=== PATIENT | female | born 1990 | race Caucasian/White ===

== ENCOUNTER 2019-03-06 21:08 | Emergency (ER) | payer OTHER ==
[2019-03-06] MEDS ORDERED: Adacel Vial IM ONE ×2 (21:59→22:32)
[2019-03-06] MEDS ORDERED: BACIGUENT PACKET TP ONE (22:00)
[2019-03-06 22:18] VITALS: BP 114/54; PULSE 103; O2SAT 99
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
[2019-03-07 00:22] LABS: Appearance CLEAR (CLEAR); Bilirubin NEGATIVE (NEGATIVE); Blood SMALL Ery/ul (0-5); Glucose NEGATIVE (NEGATIVE); Ketones NEGATIVE (NEGATIVE); Leukocyte Esterase NEGATIVE (NEGATIVE); Mucus SLIGHT /HPF (NEGATIVE); Nitrite NEGATIVE (NEGATIVE); Protein,Urine Dip NEGATIVE (Negative); Specific Gravity 1.003 (1.005-1.025); Urobilinogen NEGATIVE mg/dL (0-1); WBC 0-2 /HPF (0-5)
[2019-03-07 00:34] LABS: Amphetamine,Urine POSITIVE (NEGATIVE); Barbiturate,Urine NEGATIVE (NEGATIVE); Benzodiazepine,Urine NEGATIVE (NEGATIVE); Cocaine,Urine NEGATIVE (NEGATIVE); Methadone,Urine NEGATIVE (NEGATIVE); PCP,Urine NEGATIVE (NEGATIVE); THC,Urine POSITIVE (NEGATIVE)
[2019-03-07 00:42] LABS: Opiate,Urine NEGATIVE (NEGATIVE)
[2019-03-07 01:14] LABS: Bacteria NONE SEEN /HPF (NEGATIVE); RBC NONE SEEN /HPF (0-2)
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
== END 2019-03-07 01:24 | disposition home or self-care (01) ==
LOC: ED 21:08
DX: S50.811A Abrasion of right forearm, initial encounter (principal); S50.812A Abrasion of left forearm, initial encounter; V89.0XXA Person injured in unspecified motor-vehicle accident, nontraffic, initial encounter
CPT/HCPCS: 73552; 80307; 81001; 84703; 90471; 90715; 99284; A9270-GY

== ENCOUNTER 2020-10-03 21:49 | Emergency (ER) | payer OTHER ==
[2020-10-03] MEDS ORDERED: Zofran 4 MG/2 ML VIAL IV ONE (22:23)
[2020-10-03] MEDS ORDERED: MORPHINE SULFATE 4 MG INJ IV ONE (22:23)
[2020-10-03] MEDS ORDERED: Sodium Chloride 0.9% 1000 ML 1,000 ML IV STA (22:23)
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
[2020-10-03] MEDS ORDERED: Sodium Chloride 0.9% 1000 ML 1,000 ML ONE (22:42)
[2020-10-03] MEDS ORDERED: Zofran 4 MG/2 ML VIAL ONE (22:42)
[2020-10-03] MEDS ORDERED: MORPHINE SULFATE 4 MG INJ ONE (22:42)
[2020-10-03 22:55] LABS: Absolute Neutrophil Ct (ANC) 6.35 (1.4-6.9); BASOPHIL % 0.4 % (0.0-0.4); Basophil (Absolute #) 0.04 (0-0.4); Eosinophil % 1.9 % (0.00-5.0); Hematocrit 40.4 % (35-47); Hemoglobin 13.3 gm/dl (12.0-16.0); Lymphocyte (Absolute #) 3.13 (1.0-4.6); Lymphocytes % 29.8 % (24.0-44.0); Mean Cell Volume 92.9 fl (78-100); Mean Corpuscular Hemoglobin 30.6 pg (26-32); Mean Corpuscular Hgb Concent. 32.9 g/dl (32-36); Mean Platelet Volume 9.4 fl (7.5-11.0); Monocyte (Absolute #) 0.79 (0.0-1.3); Monocytes % 7.5 % (0.0-12.0); Neutrophil % 60.4 % (36.0-66.0); Platelet Count 361 K/mm3 (150-450); Red Blood Count 4.35 M/mm3 (4.1-5.4); Red Cell Distribution Width 14.8 % (11.5-14.0); White Blood Count 10.5 K/mm3 (4.0-10.5)
[2020-10-03 23:02] LABS: Appearance SLIGHTLY CLOUDY (CLEAR); Bilirubin NEGATIVE (NEGATIVE); Blood NEGATIVE Ery/ul (0-5); Epithelial Cells FEW /HPF (FEW); Glucose NEGATIVE (NEGATIVE); Ketones NEGATIVE (NEGATIVE); Leukocyte Esterase LARGE (NEGATIVE); Mucus SLIGHT /HPF (NEGATIVE); Nitrite NEGATIVE (NEGATIVE); Protein,Urine Dip NEGATIVE (Negative); RBC 0-2 /HPF (0-2); Specific Gravity 1.012 (1.005-1.025); Urobilinogen NEGATIVE mg/dL (0-1)
[2020-10-03 23:06] LABS: ALBUMIN 4.8 g/dL (3.5-5.0); ALKALINE PHOSPHATASE 44 U/L (38-126); AMYLASE 74 U/L (30-110); ANION GAP 10.3 MEQ/L (5-15); BLOOD UREA NITROGEN 5 mg/dL (7-17); CHLORIDE 104 mmol/L (98-107); Calcium 9.5 mg/dL (8.4-10.2); Carbon Dioxide 28 mmol/L (22-30); Creatinine 1 0.62 mg/dL (0.52-1.04); EST GLOMERULAR FILTRATION RATE > 60.0 ML/MIN; Glucose 91 mg/dL (74-106); LIPASE 110 U/L (23-300); Potassium 3.5 mmol/L (3.5-5.1); SGOT/AST 21 U/L (14-36); SGPT/ALT 7 U/L (0-35); SODIUM 139 mmol/L (137-145); Total Protein 7.6 g/dL (6.3-8.2)
[2020-10-03 23:48] VITALS: O2SAT 98
[2020-10-04 00:18] VITALS: BP 120/80; PULSE 90
--- NOTE | 2020-10-04 08:54 | XRAY ---
Indication: Vomiting and diarrhea. Comparison: None 2 view abdomen nonacute and nonobstructed with IUD in situ. Solid organs and osseous structures unremarkable. Single PA chest demonstrates normal heart, lungs, and bony thorax. Comment: Preliminary interpretation was made by [facility]. No critical discrepancy.
== END 2020-10-04 | disposition home or self-care (01) ==
LOC: ED 21:49
DX: R10.10 Upper abdominal pain, unspecified (principal)
CPT/HCPCS: 36000; 36415; 74022; 80053; 81001; 81025; 82150; 83690; 85025; 86617; 86618; 87086; 96360; 96374; 96375; 99284; J2270; J2405

== ENCOUNTER 2022-08-07 00:03 | Emergency (ER) | payer OTHER ==
[2022-08-07 00:20] VITALS: O2SAT 96
[2022-08-07] MEDS ORDERED: Sodium Chloride 0.9% 1000 ML 1,000 ML IV SCH (00:30)
[2022-08-07] MEDS ORDERED: Sodium Chloride 0.9% 1000 ML 1,000 ML ONE (00:32)
[2022-08-07 00:40] LABS: Absolute Neutrophil Ct (ANC) 4.57 x10^3/uL (1.4-6.9); BASOPHIL % 0.6 % (0.0-0.4); Basophil (Absolute #) 0.04 x10^3/uL (0-0.4); Eosinophil % 2.7 % (0.00-5.0); Eosinophil (Absolute #) 0.17 x10^3/uL (0-0.5); Hematocrit 36.5 % (35-47); IMMATURE GRAN # 0.02 x10^3u/L (0.00-0.03); IMMATURE GRAN % 0.3 % (0.00-0.4); Lymphocyte (Absolute #) 1.23 x10^3/uL (1.0-4.6); Lymphocytes % 19.4 % (24.0-44.0); Mean Cell Volume 91.9 fL (78-100); Mean Corpuscular Hemoglobin 30.2 pg (26-32); Mean Corpuscular Hgb Concent. 32.9 g/dL (32-36); Mean Platelet Volume 10.3 fL (7.5-11.0); Monocyte (Absolute #) 0.31 x10^3/uL (0.0-1.3); Monocytes % 4.9 % (0.0-12.0); Neutrophil % 72.1 % (36.0-66.0); Platelet Count 224 x10^3/uL (150-450); Red Blood Count 3.97 x10^6/uL (4.1-5.4); Red Cell Distribution Width 12.9 % (11.5-14.0); White Blood Count 6.3 x10^3/uL (4.0-10.5)
[2022-08-07 00:53] LABS: ACETAMINOPHEN < 10 ug/ml (10-30); ETHYL ALCOHOL < 10 mg/dL (0-10); SALICYLATE < 1.0 mg/dL (2-20)
--- NOTE | 2022-08-07 00:53 | ERPHSYRPT ---
- History of Present Illness Time Seen by Provider: 08/07/22 00:10 Source: patient, family, EMS Exam Limitations: no limitations Patient Subjective Stated Complaint: pt states " she can't function right" since she took her medicine Lamotragine and, klonopin Triage Nursing Assessment: pt awake. a&o. color wnl. vs wnl. pt's lower ext noticed to have mild tremor at times Physician History: Patient is a 31-year-old female presents to the emergency department via EMS for evaluation of possible seizure. Patient states she has a history of bipolar and seizure disorder. Patient's last seizure was 4 years ago. Patient was at home today. Patient took lamotrigine and Klonopin on an empty stomach. Patient states she began to develop tremors. It is unclear whether patient had a actual seizure. No tongue biting. No incontinence. Upon arrival to our ED patient was alert and oriented x4. No trauma. No fever. No neck pain. No photophobia. No meningeal signs. No associated chest pain or shortness of breath. Patient voices no other complaints or concerns at this time. Portions of this note were created with voice recognition technology. There may be grammatical, spelling, punctuation or sound alike errors Timing/Duration: today Severity: moderate Modifying Factors: Improves With: nothing Associated Symptoms: denies symptoms Allergies/Adverse Reactions: No Known Drug Allergies Allergy (Verified 08/07/22 00:07) Home Medications: ziprasidone HCL [Ziprasidone HCl] 1 cap PO BID 10/03/20 [History] Hx Tetanus, Diphtheria Vaccination/Date Given: No Hx Influenza Vaccination/Date Given: No Hx Pneumococcal Vaccination/Date Given: No Immunizations Up to Date: No Travel Risk - International Travel Have you traveled outside of the country in past 3 weeks: No - Coronavirus Screening Are you exhibiting any of the following symptoms?: No - Vaccine Status Have you recieved a Covid-19 vaccination: Yes Cue Worker: Unknown - Vaccination Dates Dates if Unknown: 2020 - Review of Systems Constitutional: No Symptoms, No Fever, No Chills Eyes: No Symptoms Ears, Nose, & Throat: No Symptoms Respiratory: No Symptoms, No Cough, No Dyspnea Cardiac: No Symptoms, No Chest Pain, No Edema, No Syncope Abdominal/Gastrointestinal: No Symptoms, No Abdominal Pain, No Nausea, No Vomiting, No Diarrhea Genitourinary Symptoms: No Symptoms, No Dysuria Musculoskeletal: No Symptoms, No Back Pain, No Neck Pain Skin: No Symptoms, No Rash Neurological: No Symptoms, No Dizziness, No Focal Weakness, No Sensory Changes Psychological: No Symptoms Endocrine: No Symptoms Hematologic/Lymphatic: No Symptoms Immunological/Allergic: No Symptoms All Other Systems: Reviewed and Negative - Past Medical History Pertinent Past Medical History: Yes Neurological History: Seizures ENT History: No Pertinent History Cardiac History: No Pertinent History Respiratory History: No Pertinent History Endocrine Medical History: No Pertinent History Musculoskeletal History: No Pertinent History GI Medical History: No Pertinent History History: No Pertinent History Psycho-Social History: Anxiety, Bipolar Female Reproductive Disorders: No Pertinent History Other Medical History: tailbone fx 10-12 years ago - Past Surgical History Past Surgical History: No Neuro Surgical History: No Pertinent History Cardiac: No Pertinent History Respiratory: No Pertinent History Gastrointestinal: No Pertinent History Genitourinary: No Pertinent History Musculoskeletal: No Pertinent History Female Surgical History: No Pertinent History - Social History Smoking Status: Never smoker How long have you smoked: years Exposure to second hand smoke: No Drug Use: none Patient Lives Alone: No - Female History Hx Last Menstrual Period: IUD Hx Now: No - Nursing Vital Signs Nursing Vital Signs: Initial Vital Signs Temperature 99.2 F 08/07/22 00:05 Pulse Rate 92 H 08/07/22 00:05 Respiratory Rate 18 08/07/22 00:05 Blood Pressure 130/74 08/07/22 00:05 O2 Sat by Pulse Oximetry 96 08/07/22 00:05 Pain Scale Pain Intensity 0 - Physical Exam General Appearance: no apparent distress, alert Eye Exam: PERRL/EOMI, eyes nml inspection Ears, Nose, Throat Exam: normal ENT inspection, TMs normal, pharynx normal, moist mucous membranes Neck Exam: normal inspection, non-tender, supple, full range of motion Respiratory Exam: normal breath sounds, lungs clear, No respiratory distress Cardiovascular Exam: regular rate/rhythm, normal heart sounds, normal peripheral pulses Gastrointestinal/Abdomen Exam: soft, normal bowel sounds, No tenderness, No mass Back Exam: normal inspection, normal range of motion, No CVA tenderness, No vertebral tenderness Extremity Exam: normal inspection, normal range of motion, pelvis stable Neurologic Exam: alert, oriented x 3, cooperative, normal mood/affect, nml cerebellar function, nml station & gait, sensation nml, No motor deficits Skin Exam: normal color, warm, dry, No rash Lymphatic Exam: No adenopathy SpO2 Interpretation: normal SpO2: 96 O2 Delivery: Room Air - Course Nursing assessment & vital signs reviewed: Yes EKG Interpreted by Me: RATE ([id number]), Sinus Rhythm, NORMAL AXIS, NORMAL INTERVALS - CT Exams Head CT Interpretation: Tele-radiologist Report (No acute intracranial abnormality) Ordered Tests: Active Orders 24 hr Category Date Time Status Human Resources Communications Manager STAT Care 08/07/22 00:25 Active EKG-ER Only STAT Care 08/07/22 00:25 Active IV Insertion STAT Care 08/07/22 00:25 Active Pulse Oximetry (ED) STAT Care 08/07/22 00:25 Active HEAD WITHOUT CONTRAST [CT] Stat Exams 08/07/22 00:29 Taken ACETAMINOPHEN Stat Lab 08/07/22 00:37 Completed CBC W DIFF Stat Lab 08/07/22 00:37 Completed CMP Stat Lab 08/07/22 00:37 Completed CULTURE,URINE Stat Lab 08/07/22 01:21 Received ETHYL ALCOHOL Stat Lab 08/07/22 00:37 Completed HCG,QUALITATIVE URINE Stat Lab 08/07/22 01:21 Completed MAGNESIUM Stat Lab 08/07/22 00:37 Completed SALICYLATE Stat Lab 08/07/22 00:37 Completed TROPONIN Q4H Lab 08/07/22 00:37 Completed TROPONIN Q4H Lab 08/07/22 02:31 Completed TROPONIN Q4H Lab 08/07/22 08:30 Ordered UA W/RFX UR CULTURE Stat Lab 08/07/22 01:21 Completed Urine Triage Profile Stat Lab 08/07/22 01:21 Completed Medication Summary Generic Name Dose Route Start Last Admin Trade Name Cristianq PRN Reason Stop Dose Admin Sodium Chloride 1,000 mls @ 100 mls/hr 08/07/22 00:30 08/07/22 00:34 Sodium Chloride 0.9% 1000 Ml IV 09/06/22 00:29 100 mls/hr .Q10H TAVIA Administration Ceftriaxone Sodium/Dextrose 1 g in 50 mls @ 100 mls/hr 08/07/22 02:50 08/07/22 02:54 Rocephin 1 Gm-D5w 50 Ml Bag IV 08/07/22 03:19 100 mls/hr STAT STA 100 mls/hr Administration Discontinued Medications Generic Name Dose Route Start Last Admin Trade Name Christi PRN Reason Stop Dose Admin Ceftriaxone Sodium/Dextrose Confirm 08/07/22 02:51 Rocephin 1 Gm-D5w 50 Ml Bag Administered 08/07/22 02:52 Dose 1 g in 50 mls @ ud IV .STK-MED ONE Lab/Rad Data: Laboratory Result Diagrams 08/07/22 00:37 08/07/22 00:37 Laboratory Results 08/07/22 08/07/22 08/07/22 Range/Units 02:31 01:21 01:21 WBC (4.0-10.5) x10^3/uL RBC (4.1-5.4) x10^6/uL Hgb (12.0-16.0) g/dL Hct (35-47) % MCV (78-100) fL MCH (26-32) pg MCHC (32-36) g/dL RDW (11.5-14.0) % Plt Count (150-450) x10^3/uL MPV (7.5-11.0) fL Gran % (36.0-66.0) % Immature Gran % (Auto) (0.00-0.4) % Nucleat RBC Rel Count (0.00-0.1) % Eos # (Auto) (0-0.5) x10^3/uL Immature Gran # (Auto) (0.00-0.03) x10^3u/L Absolute Lymphs (auto) (1.0-4.6) x10^3/uL Absolute Monos (auto) (0.0-1.3) x10^3/uL Absolute Nucleated RBC (0.00-0.01) x10^3u/L Lymphocytes % (24.0-44.0) % Monocytes % (0.0-12.0) % Eosinophils % (0.00-5.0) % Basophils % (0.0-0.4) % Absolute Granulocytes (1.4-6.9) x10^3/uL Basophils # (0-0.4) x10^3/uL Sodium (137-145) mmol/L Potassium (3.5-5.1) mmol/L Chloride (98-107) mmol/L Carbon Dioxide (22-30) mmol/L Anion Gap (5-15) MEQ/L BUN (7-17) mg/dL Creatinine (0.52-1.04) mg/dL Estimated GFR ML/MIN Glucose (74-106) mg/dL Calcium (8.4-10.2) mg/dL Magnesium (1.6-2.3) mg/dL Total Bilirubin (0.2-1.3) mg/dL AST (14-36) U/L ALT (0-35) U/L Alkaline Phosphatase (38-126) U/L Troponin I < 0.012 (0.000-0.034) ng/mL Serum Total Protein (6.3-8.2) g/dL Albumin (3.5-5.0) g/dL Urine Color (Yellow) Urine Appearance (Clear) Urine pH (4.6-8.0) Ur Specific [place] (1.005-1.030) Urine Protein (Negative) Urine Glucose (UA) (Negative) mg/dL Urine Ketones (Negative) Urine Blood (Negative) Urine Nitrite (Negative) Urine Bilirubin (Negative) Urine Urobilinogen (0.2) mg/dL Ur Leukocyte Esterase (Negative) U Hyaline Cast (Auto) (0-2) /LPF Urine Microscopic RBC (0-5) /HPF Urine Microscopic WBC (0-5) /HPF Ur Epithelial Cells (None Seen) /HPF Urine Bacteria (None Seen) /HPF Urine Culture Reflexed (NO) Urine HCG, Qual NEGATIVE (Negative) Salicylates (2-20) mg/dL Urine Opiates Level NEGATIVE (NEGATIVE) Ur Methadone NEGATIVE (NEGATIVE) Acetaminophen (10-30) ug/ml Urine Barbiturates NEGATIVE (NEGATIVE) Ur Phencyclidine (PCP) NEGATIVE (NEGATIVE) Urine Amphetamine NEGATIVE (NEGATIVE) U Benzodiazepine Level NEGATIVE (NEGATIVE) Urine Cocaine NEGATIVE (NEGATIVE) Urine Marijuana (THC) POSITIVE (NEGATIVE) Ethyl Alcohol (0-10) mg/dL 08/07/22 08/07/22 08/07/22 Range/Units 01:21 00:37 00:37 WBC (4.0-10.5) x10^3/uL RBC (4.1-5.4) x10^6/uL Hgb (12.0-16.0) g/dL Hct (35-47) % MCV (78-100) fL MCH (26-32) pg MCHC (32-36) g/dL RDW (11.5-14.0) % Plt Count (150-450) x10^3/uL MPV (7.5-11.0) fL Gran % (36.0-66.0) % Immature Gran % (Auto) (0.00-0.4) % Nucleat RBC Rel Count (0.00-0.1) % Eos # (Auto) (0-0.5) x10^3/uL Immature Gran # (Auto) (0.00-0.03) x10^3u/L Absolute Lymphs (auto) (1.0-4.6) x10^3/uL Absolute Monos (auto) (0.0-1.3) x10^3/uL Absolute Nucleated RBC (0.00-0.01) x10^3u/L Lymphocytes % (24.0-44.0) % Monocytes % (0.0-12.0) % Eosinophils % (0.00-5.0) % Basophils % (0.0-0.4) % Absolute Granulocytes (1.4-6.9) x10^3/uL Basophils # (0-0.4) x10^3/uL Sodium (137-145) mmol/L Potassium (3.5-5.1) mmol/L Chloride (98-107) mmol/L Carbon Dioxide (22-30) mmol/L Anion Gap (5-15) MEQ/L BUN (7-17) mg/dL Creatinine (0.52-1.04) mg/dL Estimated GFR ML/MIN Glucose (74-106) mg/dL Calcium (8.4-10.2) mg/dL Magnesium (1.6-2.3) mg/dL Total Bilirubin (0.2-1.3) mg/dL AST (14-36) U/L ALT (0-35) U/L Alkaline Phosphatase (38-126) U/L Troponin I < 0.012 (0.000-0.034) ng/mL Serum Total Protein (6.3-8.2) g/dL Albumin (3.5-5.0) g/dL Urine Color Yellow (Yellow) Urine Appearance Cloudy A (Clear) Urine pH 7.0 (4.6-8.0) Ur Specific [place] 1.010 (1.005-1.030) Urine Protein Trace A (Negative) Urine Glucose (UA) Negative (Negative) mg/dL Urine Ketones Negative (Negative) Urine Blood Negative (Negative) Urine Nitrite Negative (Negative) Urine Bilirubin Negative (Negative) Urine Urobilinogen 0.2 (0.2) mg/dL Ur Leukocyte Esterase Large A (Negative) U Hyaline Cast (Auto) NONE SEEN (0-2) /LPF Urine Microscopic RBC 0-2 (0-5) /HPF Urine Microscopic WBC 51-100 A (0-5) /HPF Ur Epithelial Cells Moderate A (None Seen) /HPF Urine Bacteria Few A (None Seen) /HPF Urine Culture Reflexed YES (NO) Urine HCG, Qual (Negative) Salicylates < 1.0 L (2-20) mg/dL Urine Opiates Level (NEGATIVE) Ur Methadone (NEGATIVE) Acetaminophen < 10 L (10-30) ug/ml Urine Barbiturates (NEGATIVE) Ur Phencyclidine (PCP) (NEGATIVE) Urine Amphetamine (NEGATIVE) U Benzodiazepine Level (NEGATIVE) Urine Cocaine (NEGATIVE) Urine Marijuana (THC) (NEGATIVE) Ethyl Alcohol < 10 (0-10) mg/dL 08/07/22 08/07/22 Range/Units 00:37 00:37 WBC 6.3 (4.0-10.5) x10^3/uL RBC 3.97 L (4.1-5.4) x10^6/uL Hgb 12.0 (12.0-16.0) g/dL Hct 36.5 (35-47) % MCV 91.9 (78-100) fL MCH 30.2 (26-32) pg MCHC 32.9 (32-36) g/dL RDW 12.9 (11.5-14.0) % Plt Count 224 (150-450) x10^3/uL MPV 10.3 (7.5-11.0) fL Gran % 72.1 H (36.0-66.0) % Immature Gran % (Auto) 0.3 (0.00-0.4) % Nucleat RBC Rel Count 0.0 (0.00-0.1) % Eos # (Auto) 0.17 (0-0.5) x10^3/uL Immature Gran # (Auto) 0.02 (0.00-0.03) x10^3u/L Absolute Lymphs (auto) 1.23 (1.0-4.6) x10^3/uL Absolute Monos (auto) 0.31 (0.0-1.3) x10^3/uL Absolute Nucleated RBC 0.00 (0.00-0.01) x10^3u/L Lymphocytes % 19.4 L (24.0-44.0) % Monocytes % 4.9 (0.0-12.0) % Eosinophils % 2.7 (0.00-5.0) % Basophils % 0.6 (0.0-0.4) % Absolute Granulocytes 4.57 (1.4-6.9) x10^3/uL Basophils # 0.04 (0-0.4) x10^3/uL Sodium 140 (137-145) mmol/L Potassium 3.8 (3.5-5.1) mmol/L Chloride 109 H (98-107) mmol/L Carbon Dioxide 22 (22-30) mmol/L Anion Gap 12.9 (5-15) MEQ/L BUN 8 (7-17) mg/dL Creatinine 0.72 (0.52-1.04) mg/dL Estimated GFR > 60.0 ML/MIN Glucose 108 H (74-106) mg/dL Calcium 8.4 (8.4-10.2) mg/dL Magnesium 1.7 (1.6-2.3) mg/dL Total Bilirubin 0.30 (0.2-1.3) mg/dL AST 15 (14-36) U/L ALT 10 (0-35) U/L Alkaline Phosphatase 42 (38-126) U/L Troponin I (0.000-0.034) ng/mL Serum Total Protein 6.4 (6.3-8.2) g/dL Albumin 4.0 (3.5-5.0) g/dL Urine Color (Yellow) Urine Appearance (Clear) Urine pH (4.6-8.0) Ur Specific [place] (1.005-1.030) Urine Protein (Negative) Urine Glucose (UA) (Negative) mg/dL Urine Ketones (Negative) Urine Blood (Negative) Urine Nitrite (Negative) Urine Bilirubin (Negative) Urine Urobilinogen (0.2) mg/dL Ur Leukocyte Esterase (Negative) U Hyaline Cast (Auto) (0-2) /LPF Urine Microscopic RBC (0-5) /HPF Urine Microscopic WBC (0-5) /HPF Ur Epithelial Cells (None Seen) /HPF Urine Bacteria (None Seen) /HPF Urine Culture Reflexed (NO) Urine HCG, Qual (Negative) Salicylates (2-20) mg/dL Urine Opiates Level (NEGATIVE) Ur Methadone (NEGATIVE) Acetaminophen (10-30) ug/ml Urine Barbiturates (NEGATIVE) Ur Phencyclidine (PCP) (NEGATIVE) Urine Amphetamine (NEGATIVE) U Benzodiazepine Level (NEGATIVE) Urine Cocaine (NEGATIVE) Urine Marijuana (THC) (NEGATIVE) Ethyl Alcohol (0-10) mg/dL - Progress Progress: improved Progress Note: Patient is a 31-year-old female presents to our ED via EMS for evaluation of possible seizure. Patient took lamotrigine and Klonopin together on an empty stomach. Patient developed tremors. Possible seizure. No tongue biting or urinary incontinence. Patient has a history of bipolar and seizure disorder. Vital signs stable. Physical exam essentially nonremarkable. Complexity of problems addressed is new with uncertain prognosis. Complexity is moderate. No critical care time. Testing included EKG which was read by Dr. Wasserman. EKG was normal sinus rhythm. CT head negative. Tylenol level negative. CBC CMP essentially unremarkable. Alcohol negative. hCG negative. Magnesium level normal. Aspirin level negative. Troponin negative. Urinalysis shows urinary tract infection. Urine triage/toxicology screen is marijuana positive. The results were used for medical decision making. EMS provided most of the history. Patient also provided significant amount to history of present illness. Complexity of data reviewed and analyzed was moderate. Age gender, PMH/PQ , (co-morbidities that complicate presentation) , med class, PSH, (smoker) method of arrival, CC (acute, chronic or acute on chronic), State COPA level and why or if critical. vitals, Significant ROS/PE findings, working diagnoses, Tests ordered and reviewed. EMS served as independent historian. EKG was interpreted independently by Dr. Wasserman. Risk of complication and or morbidity/mortality of patient management is moderate. Patient received intravenous fluids as well as prescription grade antibiotic/IV Rocephin for urinary tract infection. Patient feels well. She has no complaints. Will discharge home. Patient agrees to follow-up with her primary care doctor within 48 hours for reevaluation. Disposition plan was decided via shared decision making. Time spent in discharge is approximately 15 minutes. Discharge diagnosis is urinary tract infection, seizure vital stable. Patient voices no other complaints or concerns at this time. Portions of this note were created with voice recognition technology. There may be grammatical, spelling, punctuation or sound alike errors 08/07/22 02:58 08/07/22 03:07 A prescription for Keflex was forwarded to patient's pharmacy to treat urinary tract infection. Counseled pt/family regarding: lab results, diagnosis, need for follow-up, rad results - Departure Departure Disposition: Home Clinical Impression: UTI (urinary tract infection), Seizure, Marijuana use Condition: Stable Critical Care Time: No Referrals: JAN REILLY MD [Primary Care Provider] - Follow up/PCP as directed Additional Instructions: Discharge/Care Plan MELANIA SIDDIQUI was seen on 08/07/22 in the Emergency Room. The patient was counseled regarding Diagnosis,Lab results, Imaging studies, need for follow up and when to return to the Emergency Room. Prescriptions given: Discharge Note I have spoken with the patient and/or caregivers. I have explained the patient's condition, diagnosis and treatment plan based on the information available to me at this time. I have answered the patient's and/or caregiver's questions and ad dressed any concerns. The patient and/or caregivers have as good understanding of the patient's diagnosis, condition and treatment plan as can be expected at this point. The vital signs have been stable. The patient's condition is stable and appropriate for discharge from the emergency department. The patient will pursue further outpatient evaluation with the primary care physician or other designated or consulting physician as outlined in the discharge instructions. The patient and/or caregivers are agreeable to this plan of care and follow-up instructions have been explained in detail. The patient and/or caregivers have received these instruction. The patient/and or caregivers are aware that any significant change in condition or worsening of symptoms should prompt an immediate return to this or the closest emergency department or call 911. Prescriptions: Cephalexin Mh 500 mg [Keflex 500 mg] 500 mg PO TID #21 cap
[2022-08-07 01:00] LABS: ALKALINE PHOSPHATASE 42 U/L (38-126); ANION GAP 12.9 MEQ/L (5-15); BLOOD UREA NITROGEN 8 mg/dL (7-17); CHLORIDE 109 mmol/L (98-107); Calcium 8.4 mg/dL (8.4-10.2); Carbon Dioxide 22 mmol/L (22-30); Creatinine 1 0.72 mg/dL (0.52-1.04); EST GLOMERULAR FILTRATION RATE > 60.0 ML/MIN; Glucose 108 mg/dL (74-106); MAGNESIUM 1.7 mg/dL (1.6-2.3); Potassium 3.8 mmol/L (3.5-5.1); SGOT/AST 15 U/L (14-36); SGPT/ALT 10 U/L (0-35); SODIUM 140 mmol/L (137-145); Total Protein 6.4 g/dL (6.3-8.2)
[2022-08-07 01:31] LABS: Appearance Cloudy (Clear); Bacteria Few /HPF (None Seen); Bilirubin Negative (Negative); Blood Negative (Negative); Epithelial Cells Moderate /HPF (None Seen); Glucose, Urine Negative (Negative); Hyaline Casts NONE SEEN /LPF (0-2); Ketones Negative (Negative); Leukocyte Esterase Large (Negative); Nitrite Negative (Negative); Protein,Urine Dip Trace (Negative); RBC 0-2 /HPF (0-5); Urobilinogen 0.2 mg/dL (0.2); WBC 51-100 /HPF (0-5)
[2022-08-07 01:33] LABS: ADD URINE CULTURE? YES (NO)
[2022-08-07 01:54] LABS: Amphetamine,Urine NEGATIVE (NEGATIVE); Barbiturate,Urine NEGATIVE (NEGATIVE); Benzodiazepine,Urine NEGATIVE (NEGATIVE); Cocaine,Urine NEGATIVE (NEGATIVE); Methadone,Urine NEGATIVE (NEGATIVE); Opiate,Urine NEGATIVE (NEGATIVE); PCP,Urine NEGATIVE (NEGATIVE); THC,Urine POSITIVE (NEGATIVE)
[2022-08-07] MEDS ORDERED: ROCEPHIN 1 Gm-D5w 50 ml Bag** 1 G/50 ML IVPB IV STA (02:50)
[2022-08-07] MEDS ORDERED: ROCEPHIN 1 Gm-D5w 50 ml Bag** 1 G/50 ML IVPB IV ONE (02:51)
[2022-08-07 03:10] VITALS: BP 110/61; PULSE 66
--- NOTE | 2022-08-07 08:48 | XRAY ---
Indication: Seizure. Dizziness. Frontal headache. Multiple contiguous axial images obtained through the head without contrast. Comparison: November 15, 2015. Ventriculosulcal pattern appears symmetric. Stable nonspecific bilateral globus pallidus mineralization. No acute intracranial hemorrhage, abnormal extra-axial fluid collection, or mass effect. Fourth ventricle is midline without hydrocephalus. Tang-white matter differentiation preserved. Bony calvarium intact. Visualized paranasal sinuses and mastoid air cells are clear. Impression: Continued negative CT head without contrast exam. Comment: Preliminary interpretation made by [facility]. No critical discrepancy.
== END 2022-08-07 03:27 | disposition home or self-care (01) ==
LOC: ED 00:03
DX: N39.0 Urinary tract infection, site not specified (principal); R56.9 Unspecified convulsions; F12.90 Cannabis use, unspecified, uncomplicated; Z79.899 Other long term (current) drug therapy
CPT/HCPCS: 36000; 36415; 70450; 80053; 80307; 81001; 81025; 83735; 84484; 85025; 87086; 93005; 93041; 94760; 96365; 99284; G0480; J0696